=== PATIENT | male | born 1950 | race Caucasian/White ===

== ENCOUNTER 2017-05-20 15:32 | Observation (INO) | payer OTHER ==
--- NOTE | 2017-05-20 15:54 | CPEKG ---
Heart Rate: 77 RR Interval: 779 P-R Interval: 160 QRSD Interval: 96 QT Interval: 384 QTC Interval: 435 P Riegelwood: 60 QRS [place]wood: 87 T Wave R[place]wood: 23 EKG Severity - OTHERWISE NORMAL ECG - EKG Impression: SINUS RHYTHM EKG Impression: BORDERLINE RIGHT AXIS DEVIATION Electronically Signed By: Charu Andersen 20-May-2017 20:54:53
[2017-05-20 16:01] LABS: % IMMATURE GRANULYOCYTES 0.2 % (0.0-1.1); ABSOLUTE IMMATURE GRANULOCYTES 0.02 10^3/uL (0.00-0.10); ADD DIFF? NO; ADD MORPH? NO; ADD SCAN? NO; ATYPICAL LYMPHOCYTE FLAG 0 (0-99); FRAGMENT RBC FLAG 0 (0-99); HEMATOCRIT 43.4 % (40.0-51.0); HEMOGLOBIN 15.4 g/dL (13.7-17.5); LEFT SHIFT FLG 0 (0-99); LIPEMIA HEMOLYSIS FLAG 90 (0-99); MEAN CELL HEMOGLOBIN 33.1 pg (27.9-34.1); MEAN CELL HEMOGLOBIN CONCENTR. 35.5 g/dL (32.4-36.7); MEAN CELL VOLUME 93.3 fL (81.5-99.8); MEAN PLATELET VOLUME 10.3 fL (8.7-11.7); PLATELET CLUMPS FLAG 10 (0-99); PLATELET COUNT 184 10^3/uL (150-400); RED BLOOD CELL COUNT 4.65 10^6/uL (4.40-6.38); RED CELL DISTRIBUTION WIDTH 13.2 % (11.5-15.2)
--- NOTE | 2017-05-20 16:06 | EDPHY ---
H & P Stated Complaint: AMS Time Seen by Provider: 05/20/17 15:54 HPI/ROS: CHIEF COMPLAINT: Transient AMS HISTORY OF PRESENT ILLNESS: The patient is a 66 y/o male arriving via EMS for evaluation of transient episode of AMS while skiing this afternoon. He describes skiing today with his friend and [place] into the [place] to eat [place]. He then began to feel confused and agitated. He tells me, "I knew something wasn 't right; I felt like I was going in and out like I was in a tunnel" and was mentally not there." He had an associated mild frontal headache that is still present. He did not feel near-syncopal and denies associated chest pain, dyspnea , nausea, diaphoresis, weakness, numbness, or other symptoms at that time. He does not remember the entire event. His friend, who is at bedside, is a indian nanny and was with the patient when symptoms began. He confirms the patient was disoriented and could not remember the date or his address. The friend denies any obvious focal neuro deficit and thinks the episode lasted about 30 minutes. He currently feels almost back to baseline. They both deny any preceding trauma while skiing. The patient is normally healthy and does not take anticoagulants. He did have a milder but similar event previously that was thought to be related to a potassium deficiency while at altitude. Prehospital BGL 147. REVIEW OF SYSTEMS: Constitutional: No fever, no chills Eyes: No visual changes ENT: No sore throat Respiratory: No cough, no shortness of breath Cardiac: No chest pain Gastrointestinal: No nausea, no vomiting, no abdominal pain Genitourinary: No hematuria, no dysuria Musculoskeletal: No leg pain or swelling Skin: No rash Neurological: +headache, no numbness, no weakness Psychiatric: No depression - Personal History Current Tetanus Diphtheria and Acellular Pertussis (TDAP): Yes - Medical/Surgical History PMH: Denies Hx Asthma: No Hx Chronic Respiratory Disease: No Hx Diabetes: No Hx Cardiac Disease: No Hx Renal Disease: No Hx Cirrhosis: No Hx Alcoholism: No Hx HIV/AIDS: No Hx Splenectomy or Spleen Trauma: No Other PMH: Denies - Social History Smoking Status: Never smoked Additional Social History: Nonsmoker. Friend at bedside. [facility] patient. - Physical Exam Exam: General Appearance: Alert, pleasant Eyes: Pupils equal and round, no conjunctival pallor or injection ENT, Mouth: Mucous membranes moist Neck: Normal inspection Respiratory: Lungs are clear to auscultation Cardiovascular: Regular rate and rhythm Gastrointestinal: Abdomen is soft and non- tender Neurological: Alert, oriented x3, cranial nerves II through XII intact, motor 5 /5, sensory intact to light touch, normal gait Skin: Warm and dry, no rash Extremities: Nontender, no pedal edema Psychiatric: Mood and affect normal Constitutional: Initial Vital Signs Temperature (C) 36.5 C 05/20/17 15:40 Heart Rate 84 05/20/17 15:40 Respiratory Rate 16 05/20/17 15:40 Blood Pressure 132/83 H 05/20/17 15:40 O2 Sat (%) 94 05/20/17 15:40 O2 Delivery Mode Room Air Allergies/Adverse Reactions: No Known Allergies Allergy (Unverified 05/20/17 15:43) Home Medications: Medication Instructions Recorded Herbals/Supplements -Info Only 1 ea PO DAILY 05/20/17 Tears/Dextran 70/Hypromellose 1 drop EACHEYE PRN PRN 05/20/17 [Natural Balance Tears (*)] Acetaminophen [Tylenol 325mg (*)] 650 mg PO Q4HRS PRN tab 05/21/17 Aspirin EC [Aspirin EC 81 mg (*)] 81 mg PO DAILY #30 tab 05/21/17 Medical Decision Making - Diagnostics EKG Interpretation: EKG interpreted by me: NSR, rate 77, no ST/T changes Imaging Results: CT head: NAD Imaging: Discussed imaging studies w/ inspector repairer Radiologist, I viewed and interpreted images myself ED Course/Re-evaluation: This is a normally healthy 66 y/o male who presents for evaluation after a transient 30-minute episode of disorientation, headache, and agitation [place]. He is alert and oriented upon assessment and feels almost back to baseline with exception of a lingering mild headache. He has a normal neuro exam currently. His presentation is concerning for TIA, ICH, atypical migraine. Blood sugar normal DEEP TISSUE MASSAGE THERAPIST. Plan for IV, labs, EKG, and head CT. EKG reveals no evidence of ischemia or dysrhythmia. Normal head CT per radiology. 164: Reassessed patient and discussed work up. Remains asymptomatic and neuro exam intact. Unclear etiology of sx. I advised admission for full TIA evaluation, which he agrees to if [facility] allows admission here. Spoke with [facility]. They agree to admission here. Consulted with hospitalist service. Dr. Glynn accepts admission. 324mg PO aspirin administered. Differential Diagnosis: includes though not limited to TIA, hypoglycemia, hyponatremia, TGA, migraine CORDOBA , ICH. - Data Points Laboratory Results: Laboratory Results 05/20/17 15:44 05/20/17 15:44 Medications Given: Discontinued Medications Aspirin (Aspirin) 324 mg PO EDNOW ONE Stop: 05/20/17 16:54 Last Admin: 05/20/17 17:09 Dose: 324 mg Departure - Departure Disposition: [facility] Inpatient Acute Clinical Impression: TIA (transient ischemic attack) Qualifiers: Transient cerebral ischemia type: other Qualified Code(s): G45.8 - Other transient cerebral ischemic attacks and related syndromes Condition: Fair Report Scribed for: Charu Andersen Report Scribed by: Janki Caballero Date of Report: 05/20/17 Time of Report: 16:06 Physician Review and Approval Statement: 05/20/17 16:06 Portions of this note were transcribed by a forensic medical examiner. I personally performed a history, physical exam, medical decision making, and confirmed accuracy of information the transcribed note.
[2017-05-20 16:11] LABS: ANION GAP 13 mEq/L (8-16); CALCIUM 9.3 mg/dL (8.5-10.4); CARBON DIOXIDE 20 mEq/l (22-31); CHLORIDE 106 mEq/L (97-110); GLOMERULAR FILTRATION RATE > 60; GLUCOSE 104 mg/dL (70-100); SODIUM 139 mEq/L (134-144)
[2017-05-20 16:22] LABS: TROPONIN I 0.013 ng/mL (0.000-0.034)
[2017-05-20] MEDS ORDERED: ASPIRIN 81 MG CHEWABLE TAB PO ONE (16:53)
[2017-05-20] MEDS ORDERED: ONDANSETRON 4 MG/2 ML VIAL IVP PRN (17:03)
[2017-05-20] MEDS ORDERED: ACETAMINOPHEN 325 MG TAB PO PRN (17:03)
[2017-05-20] MEDS ORDERED: ONDANSETRON DISINTEGRATING 4 MG TAB PO PRN (17:03)
--- NOTE | 2017-05-20 18:38 | GHP ---
[f rep st] HISTORY AND PHYSICAL DATE OF ADMISSION: 05/20/2017 CHIEF COMPLAINT: Disorientation, concern for TIA. HISTORY OF PRESENT ILLNESS: A 66-year-old male with past medical history of hyperlipidemia, who presents with disorientation today after skiing. He was skiing with his friend at [place], who is a gerontologist, without issue. They did 4-5 runs and then went to have lunch. Per his friend, he was very disoriented. Patient says he ordered chili and does not recall paying for it. He says that he was in his normal state of health the day prior. He had breakfast this morning. No fevers, chills, or sweats. No chest pain. No shortness of breath. No weakness. No headache. His friend began to ask him orientation questions and he could only say who he was. He remembers having an episode of vertigo years ago and thought it was related to an electrolyte deficiency. The patient's symptoms have since resolved and he is feeling like himself here in the emergency room. REVIEW OF SYSTEMS: I completed a 10-point review of systems, negative except as noted in HPI. PAST MEDICAL HISTORY: Hyperlipidemia. PAST SURGICAL HISTORY: Back surgery. FAMILY HISTORY: Father with leukemia. Maternal grandmother with a CVA. Mother with Alzheimer's. Maternal grandfather with an PR. Paternal grandfather with an PR. SOCIAL HISTORY: Lives in [place]. Drinks a glass of wine or beer a night. No tobacco or illicits. MEDICATIONS: Takes red yeast rice occasionally, CoQ10, vitamin D, herbal supplements. He is a [facility] patient. ALLERGIES: No known drug allergies. PHYSICAL EXAMINATION: VITAL SIGNS: Temperature 36.6, blood pressure 116/96, heart rate 68, respirations 16, 96% on room air. GENERAL: Well-appearing male , sitting up in bed, no acute distress. HEENT: PERRLA. EOMI. Oropharynx clear. CVS: Regular rate and rhythm. No murmurs, gallops, rubs. LUNGS: Clear to auscultation bilaterally. ABDOMEN: Soft, nontender, nondistended. Positive bowel sounds. GENITOURINARY: No Argueta. MUSCULOSKELETAL: 5/5 upper and lower extremity strength. NEURO: 2 through 12 intact. Normal sensation to touch. PSYCH: Alert and oriented x3. LABS: Sodium 139, potassium 4.0, chloride 106, carbon dioxide 20, BUN 12, creatinine 1, glucose 104, calcium 9.3. Troponin 0.013. WBC is 9, hemoglobin 15, hematocrit 43, platelets 184. EKG is personally reviewed by me, ST flattening in lead III. Normal sinus rhythm. ASSESSMENT/PLAN: 1. Disorientation, concern for transient ischemic attack: now alert and oriented x3. EKG and troponin negative for arrhythmia. T Will repeat this. Monitor on telemetry. Frequent neuro checks. CT head was negative. Check an MRI, echocardiogram with bubble. Neurology to consult in the morning. Check lipids. We will have PT, OT, and speech evaluate. Start a baby aspirin. 2. Diet: Cardiac. 3. DVT prophylaxis: SCDs. 4. Disposition: Patient warrants observation admission given concern for a TIA requiring further imaging and Neurology consult. /[id number]/MODL MTDD
[2017-05-21 07:54] VITALS: TEMP 97.8
[2017-05-21] MEDS ORDERED: TEARS/DEXTRAN 70/HYPROMELLOSE 15 ML OPHT.BTL EACHEYE PRN (07:59)
--- NOTE | 2017-05-21 09:18 | HOSPPROG ---
Hospitalist Progress Note Assessment/Plan: Patient is a 66 y/o male who presents w disorientation after skiing. Patient was admitted for further evaluation. *Disorientation/transient -suspect it was from dehydration and being at high altitude -didn't eat lunch, wasn't drinking fluids -no focal deficits -reviewed w Avni and his symptoms of a stroke -initial concern for TIA ordered, but patient was concerned about coverage w insurance and felt good yesterday while in the ambulance after eating *Plan: dc home, f/u w his pcp Subjective: Avni feels fine, all symptoms resolved yesterday. Objective: Vital Signs Temp Pulse Resp BP Pulse Ox 36.6 C 68 12 127/89 H 94 05/21/17 07:50 05/21/17 07:50 05/21/17 07:50 05/21/17 07:50 05/21/17 07:50 05/20/17 05/21/17 05/22/17 05:59 05:59 05:59 Intake Total 900 Balance 900 - Physical Exam Constitutional: no apparent distress, appears nourished, not in pain Eyes: PERRL Ears, Nose, Mouth, Throat: hearing normal Cardiovascular: regular rate and rhythym Respiratory: no respiratory distress Gastrointestinal: normoactive bowel sounds Skin: warm Musculoskeletal: full muscle strength Neurologic: AAOx3, sensation intact bilaterally, CN II-XII Intact, No weakness, No numbness, No facial droop Psychiatric: interacting appropriately, not anxious ICD10 Worksheet Patient Problems: Problems Problem Status Onset TIA (transient ischemic attack) Acute
--- NOTE | 2017-05-21 09:36 | NEUROPROG ---
Assessment: HOSPITAL NEUROLOGY CONSULT REQUESTING: Nayeli Glynn MD REASON: TIA HPI: 66 year old right-handed man with a history of HLD presented to our ED 05/20 due to a transient episode of acute confusional state. Patient was out skiing [place] with a friend. He notes feeling very thirsty all morning. He had apparently done 5 runs with his friend who is a retired kiln car unloader. He only remembers going down 3 runs. Lunch time came and he went to the cafeteria with his friend. He apparently was very confused in the cafeteria. He was disoriented to place, time and even his home address. He became very upset when he couldn't find his lunch (he usually packs a lunch when skiing and leaves it in his car). He searched his backpack and couldn't find his lunch, which caused some agitation. He apparently ordered some chili from the cafeteria and ate it. He only recalls bits and pieces of these events , but is not completely amnestic. He was reportedly not asking repetitive questions. His physician friend reported no focal deficits, like language trouble, dysarthria, focal weakness, note of sensory or visual complaints, gait instability. This lasted about an hour. He denies having any headache. No adventitial movements or automatisms noted. He was transported via EMS to our ED. An MRI brain was done in the ED which showed a single punctate focus of T2 FLAIR hyperintensity in the right frontal subcortical white matter, but nothing more. He continues to feel at baseline today. He can't think of anything that may have triggered this spell. He was not drinking that day and does not use any illicit substances. ROS: As per the HPI, otherwise a complete 12 point ROS was performed and is negative ALLERGIES AND MEDS: As recorded in the EMR - reviewed and reconciled PFSH: As per the intake H&P by Dr. Glynn from yesterday EXAM: VS reviewed in EMR GEN: WDWN laying in NAD HEENT: NCAT, sclera anicteric, conjunctiva not injected, MMM, oropharynx clear, no scalp tenderness NECK: supple, nontender, no meningismus CV: RRR s1 s2 wo m/r/c/g. Carotid pulses 2+ wo bruit NEURO: MS: awake, alert, oriented to all spheres. Speech nondysarthric. No language disturbance. Follows commands. Attends to both sides. Recent/remote memory grossly intact. Mood euthymic. Good fund of knowledge. CN: pupils 3mm round and reactive. Fundi with sharp discs. VFF. Primary gaze centered. Full ocular motility. Facial sensation preserved. Face symmetric. Hearing grossly intact to finger rub. Palatoglossal movements intact. Shoulder shrug and head turn strong. MOTOR: normal bulk/tone. No adventitial movements. Full power throughout. SENSORY: intact to all modalities throughout. No extinction. COORD: no ataxia FN/HS. Ashleigh preserved. Romberg neg. REFLEX: plantars down. No clonus. DTRS 2/4. GAIT: rises unassisted. Narrow base. Intact stride length/heel strike/toe lift /arm swing. Turns with 2 steps. Able to tandem without difficulty. DATA REVIEW: Labs reviewed in EMR PERSONALLY INTERPRETED RESULTS AND DATA: MRI brain wo - as per the HPI IMPRESSION AND RECOMMENDATIONS: // ENCEPHALOPATHY - TRANSIENT - RESOLVED Patient with an episode of transient confusion and agitation. This does not localize well and I don't think it represents any focal brain dysfunction. Sounds more like an issue of global cerebral dysfunction, unlikely to be vascular in nature. He may have been dehydrated given his excessive thirst, especially with the altitude. No other toxic/metabolic/infectious etiology identified. I don't think this sounds like a seizure given the intermittent preserved awareness. I don't think this sounds like TGA either given duration and semiology of events. MRI is unremarkable. Would favor observation going forward. We can expand our workup if another event occurs, but I don't have a compelling sense this is primary neurologic. He can continue ASA 81mg daily as a precaution. He would like to be discharged today. I am OK with this. Will sign off. Please recall PRN. Objective: Vital Signs Temp Pulse Resp BP Pulse Ox 36.6 C 68 12 127/89 H 94 05/21/17 07:50 05/21/17 07:50 05/21/17 07:50 05/21/17 07:50 05/21/17 07:50 05/20/17 05/21/17 05/22/17 05:59 05:59 05:59 Intake Total 900 Balance 900 Allergies/Adverse Reactions: No Known Allergies Allergy (Unverified 05/20/17 15:43)
[2017-05-21 11:56] VITALS: BP 130/82; PULSE 76; RESP 16; O2SAT 97
--- NOTE | 2017-05-21 15:20 | ASDISCHSUM ---
Discharge Information Plan Status:Home with No Needs Medically Cleared to Leave:05/20/2017 Discharge Date:05/21/2017 12:41 PM CM D/C Disposition:Home, Routine, Self-Care ADT D/C Disposition:Home, Routine, Self-Care Projected Discharge Date:05/21/2017 12:41 PM Transportation at D/C:Family Discharge Delay Reason: Follow-Up Date:05/21/2017 12:41 PM Discharge Slot: Final Diagnosis: Placement Information Patient Contact Information Contact Name:PIYUSH Relationship: Address:[address] [place] Alternate Phone: State/Zip Code:[place] [address] Email: Financial Information Financial Class:Medicare Advantage Plans Primary Plan Desc:[employer] ADVANTAGE OUTPAT Primary Plan Number:[id number] Secondary Plan Desc: Secondary Plan Number: Assessment Information Case Management Discharge Plan Note Case Management Discharge Discharge Order Complete? Answers: Yes Patient to Obtain Answers: via Family Medications Transportation Arranged Answers: Family/Friends Discharge Comments Notes: Pt was admitted with AMS, possible TIA. Discharging home today with no CM needs. Pt concerned about his [employer] insurance paying for this [facility] stay. Contacted [facility] who informed [facility] aware pt was here obs status and that his stay was covered. Informed pt. Date Signed: 05/21/2017 03:18 PM Electronically Signed By:TRAV Narayanan Intervention Information Intervention Type:*YRN-Signed Date of Service:05/21/2017 11:03 AM Patient Type:Observation Staff Member:Anastasiya Still Hours:0.25 Discipline: Severity: Comment:
--- NOTE | 2017-05-21 20:48 | GDS ---
[f rep st] DISCHARGE SUMMARY DISCHARGE DIAGNOSES: Transient disorientation. CONSULTATION: Robin Garcia DO Briefly, the patient is a 66-year-old gentleman, who was skiing at [place] with his friend. He was skiing at approximately 10,000 feet. He said that he was thirsty all morning and had done multiple runs with his friend. He brought his lunch with him and left it in the car; decided to skip lunch that day and then became more hungry. He searched his backpack thinking it was there and could not find his lunch, which caused some agitation. He had some chili in the cafeteria and then also had a vitamin water. His friend, who is a physician, was concerned, and he was transported to the emergency room for concerns of confusion. He had no focal deficits or any type of language troubles or dysarthria; nothing specific. CT scan showed nothing acute. An MRI of the brain was done, which showed a single punctate focus of T2 FLAIR hyperintensity in the right front subcortical white matter, but nothing acute. He felt he was at his baseline yesterday after eating and drinking. I suspect most of his symptoms were caused by significant dehydration. HOSPITAL COURSE PER PROBLEM: Acute transient encephalopathy with disorientation. I suspect the main cause of this was not eating and drinking. In addition, he was at high altitude. Encouraged him to stay well hydrated. Also, I reviewed with the patient and his , any signs or symptoms of a stroke, to return to the ER. During his stay, he was in sinus rhythm. Vital signs were stable. DISCHARGE CONDITION: Stable. Blood pressure is 127/89, O2 sat on room air 94% , respiratory rate is 12, pulse 68, temperature 36.6 Celsius. MEDICATIONS AT DISCHARGE: Please see the EMR. DISCHARGE INSTRUCTIONS: 1. To take copies of his CT scan and MRI to see his primary care provider. 2. If he develops any stroke symptoms, to return to the emergency room immediately. /[id number]/MODL MTDD
== END 2017-05-21 12:41 | disposition home or self-care (01) ==
LOC: EDUNIT# → F3N 18:05
PROVIDERS: ADMIT Internal Medicine; ATTEND Internal Medicine
DX: R41.0 Disorientation, unspecified (principal); G93.40 Encephalopathy, unspecified; E78.5 Hyperlipidemia, unspecified
CPT/HCPCS: 70450; 70551; 93005; 99285; G0378

== ENCOUNTER → 2018-07-13 | Outpatient (CLI) | payer OTHER | LOC: BMCIMAGING 11:33 | PROVIDERS: ATTEND Family Medicine | DX: M25.552 Pain in left hip (principal) ==